=== PATIENT | female | born 1970 | race Caucasian/White ===

== ENCOUNTER 2024-10-21 18:08 | Emergency (ER) | payer BC ==
[~2024-10-21] VITALS: Ht 165.1 cm; Wt 81.8 kg
[2024-10-21 18:18] VITALS: TEMP 98.4
[2024-10-21] MEDS: SODIUM CHLORIDE 0.9% 1,000 ML IV ONE (19:45)
[2024-10-21] MEDS: CLINDAMYCIN 600 MG/D5% WATER 50 ML IV ONE (19:46)
[2024-10-21 19:47] LABS: BASOPHILS % (AUTO) 0.4 % (0.0-2.0); EOSINOPHILS % (AUTO) 2.9 % (1.0-6.0); HEMATOCRIT 34.7 % (36-46); HEMOGLOBIN 10.9 g/dL (12.0-16.0); LYMPHOCYTES # (AUTO) 1.8 K/uL (1.0-4.8); LYMPHOCYTES % (AUTO) 30.2 % (22.0-44.0); MEAN CORPUSCULAR HGB CONC 31.5 G/dL (31.0-37.0); MEAN CORPUSCULAR VOLUME 64 fL (80-100); MONOCYTES # (AUTO) 0.4 K/uL (0.1-1.0); MONOCYTES % (AUTO) 6.1 % (2.0-9.0); NEUTROPHILS # (AUTO) 3.5 K/uL (1.8-7.7); NEUTROPHILS % (AUTO) 60.4 % (40.0-70.0); PLATELET COUNT (AUTO) 259 K/uL (150-450); RED BLOOD CELL COUNT(AUTO) 5.46 MIL/uL (4.00-5.20); WHITE BLOOD COUNT (AUTO) 5.8 K/uL (4.5-11.0)
[2024-10-21 19:48] LABS: RBC MORPHOLOGY COMMENT ABNORMAL RBC MORPH
[2024-10-21 19:49] LABS: ANION GAP 6 mmol/L (8-16); CALCIUM, TOTAL 8.9 mg/dL (8.8-10.5); CARBON DIOXIDE 30 mmol/L (22-29); CHLORIDE 104 mmol/L (98-107); CREATININE 0.69 mg/dL (0.60-1.30); GLOMERULAR FILTR. RATE CALC > 60 mL/min (>60); GLUCOSE,RANDOM 98 mg/dL (70-110); POTASSIUM 4.1 mmol/L (3.5-5.1); SODIUM SERUM 140 mmol/L (136-145); UREA NITROGEN, BLOOD 15 mg/dL (7-18)
[2024-10-21 19:59] LABS: LACTIC ACID 0.6 mmol/L (0.4-2.0)
[2024-10-21] MEDS ORDERED: CLIN-142 PO (21:53)
[2024-10-21 22:06] VITALS: BP 120/61; PULSE 85; RESP 18; O2SAT 98
== END 2024-10-21 22:11 | disposition home or self-care (01) ==
LOC: EMS 18:08
DX: L03.113 Cellulitis of right upper limb (principal); Y04.1XXA Assault by human bite, initial encounter; Y93.89 Activity, other specified; Y92.89 Other specified places as the place of occurrence of the external cause; Y99.8 Other external cause status
CPT/HCPCS: 99284; 96365; 96366; 80048; 83605; 85025; 87040; 36415; 73130; J3490; J7030